=== PATIENT | female | born 1955 | race Caucasian/White ===

== ENCOUNTER 2020-04-12 14:47 | Inpatient (IN) ==
[2020-04-12] MEDS ORDERED: *HR* OxyCODONE Immed Rel 5 MG TABLET PO STA (22:24)
[2020-04-12] MEDS ORDERED: Cyanocobalamin (B-12) 1,000 MCG/ML VIAL IM SCH (22:30)
[2020-04-13] MEDS ORDERED: hydrOXYzine pamoate 25 MG CAPSULE PO PRN (00:51)
[2020-04-13] MEDS: hydrOXYzine pamoate 25 MG CAPSULE PO PRN ×2 (01:22→22:26)
[2020-04-13] MEDS: Famotidine 20 MG TABLET PO SCH ×3 (01:22→20:25)
[2020-04-13] MEDS: Simethicone 80 MG TAB.CHEW PO SCH ×3 (01:22→20:30)
[2020-04-13] MEDS: Pregabalin 75 MG CAPSULE PO SCH ×3 (01:23→20:24)
[2020-04-13] MEDS: Divalproex (24 HR) 250 MG TABLET PO SCH ×2 (01:23→17:30)
[2020-04-13] MEDS: Sennosides 8.6 MG TABLET PO SCH ×2 (01:24→20:25)
[2020-04-13 05:51] LABS: Hemoglobin 8.9 g/dL (11.5-15.4); Mean Corpuscular HGB Conc 31.8 g/dL (31.6-35.5); Mean Corpuscular Hemoglobin 28.5 pg (28.0-33.3); Mean Corpuscular Volume 89.7 fL (83.0-100.0); Mean Platelet Volume 11.2 fL (9.4-12.4); Platelet Count 274 K/mcL (140-400); Red Blood Count 3.12 M/mcL (3.82-4.97); Red Cell Distribution Width 16.2 % (11.5-14.5); White Blood Count 8.2 K/mcL (4.3-11.1)
[2020-04-13 06:10] LABS: BUN/Creatinine Ratio 12 (6-26); Blood Urea Nitrogen 10 mg/dL (8-23); Calcium 8.2 mg/dL (8.6-10.3); Carbon Dioxide 31 mEq/L (23-29); Chloride 101 mEq/L (98-107); Glucose 111 mg/dL (70-105); Osmolality,Calculated 284 (280-300); Potassium 3.8 mEq/L (3.5-5.1); Sodium 137 mEq/L (136-145); eGFR For African Americans > 60 (> 60); eGFR For Non-African Americans > 60 (> 60)
[2020-04-13] MEDS: *HR* OxyCODONE Immed Rel 5 MG TABLET PO PRN ×4 (06:11→20:23)
[2020-04-13] MEDS: Ondansetron ODT 4 MG TAB.RAPDIS PO SCH ×3 (06:12→16:14)
[2020-04-13] MEDS: (Iron Polysaccharide Complex [Pro Fe] 180 MG) PO SCH (09:17)
[2020-04-13] MEDS: (Cyclosporine [Restasis] 1 EACH) OP SCH ×2 (09:17→22:21)
[2020-04-13] MEDS: Thiamine (B-1) 100 MG TABLET PO SCH (09:17)
[2020-04-13] MEDS: LOTEPREDNOL ETABONATE OP SCH ×2 (09:17→22:21)
[2020-04-13] MEDS: Cholecalciferol (D-3) 1,000 UNIT (25MCG) TABLET PO SCH (09:17)
[2020-04-13] MEDS: Metoprolol XL (24 HR) Succ 25 MG TAB.ER.24H PO SCH (09:17)
[2020-04-13] MEDS: (Naloxegol Oxalate [Movantik] 25 MG) PO SCH (09:18)
[2020-04-13] MEDS ORDERED: *HR* OxyCODONE Immed Rel 5 MG TABLET PO PRN (12:32)
[2020-04-13] MEDS ORDERED: tiZANidine 4 MG TABLET PO PRN (12:33)
[2020-04-13] MEDS ORDERED: Aspirin Enteric Coated 81 MG Tablet PO SCH (12:45)
[2020-04-13] MEDS: *HR* Enoxaparin 40 MG/0.4 ML SYRINGE SQ SCH (16:14)
[2020-04-13] MEDS: Aspirin Enteric Coated 81 MG Tablet PO SCH (16:14)
[2020-04-13] MEDS: Melatonin 3 MG TABLET PO PRN (22:26)
[2020-04-14] MEDS: *HR* OxyCODONE Immed Rel 5 MG TABLET PO PRN ×5 (04:18→20:59)
[2020-04-14] MEDS: *HR* Enoxaparin 40 MG/0.4 ML SYRINGE SQ SCH (04:18)
[2020-04-14] MEDS: Pregabalin 75 MG CAPSULE PO SCH ×2 (08:21→19:50)
[2020-04-14] MEDS: Thiamine (B-1) 100 MG TABLET PO SCH (08:22)
[2020-04-14] MEDS: Ondansetron ODT 4 MG TAB.RAPDIS PO SCH ×3 (08:23→16:31)
[2020-04-14] MEDS: Famotidine 20 MG TABLET PO SCH ×2 (08:23→19:50)
[2020-04-14] MEDS: Aspirin Enteric Coated 81 MG Tablet PO SCH (08:24)
[2020-04-14] MEDS: Simethicone 80 MG TAB.CHEW PO SCH ×2 (08:24→19:52)
[2020-04-14] MEDS: Cholecalciferol (D-3) 1,000 UNIT (25MCG) TABLET PO SCH (08:24)
[2020-04-14] MEDS: Metoprolol XL (24 HR) Succ 25 MG TAB.ER.24H PO SCH (08:24)
[2020-04-14] MEDS ORDERED: Cyanocobalamin (B-12) 1,000 MCG/ML VIAL IM SCH (09:00)
[2020-04-14] MEDS: (Naloxegol Oxalate [Movantik] 25 MG) PO SCH (12:22)
[2020-04-14] MEDS: LOTEPREDNOL ETABONATE OP SCH ×2 (12:22→19:53)
[2020-04-14] MEDS: (Iron Polysaccharide Complex [Pro Fe] 180 MG) PO SCH (12:23)
[2020-04-14] MEDS: (Cyclosporine [Restasis] 1 EACH) OP SCH ×2 (12:23→19:52)
[2020-04-14] MEDS: Divalproex (24 HR) 250 MG TABLET PO SCH (17:00)
[2020-04-14] MEDS: Sennosides 8.6 MG TABLET PO SCH (19:52)
[2020-04-14] MEDS: hydrOXYzine pamoate 25 MG CAPSULE PO PRN (22:07)
[2020-04-14] MEDS: Melatonin 3 MG TABLET PO PRN (22:07)
[2020-04-15] MEDS: *HR* OxyCODONE Immed Rel 5 MG TABLET PO PRN ×5 (04:33→22:08)
[2020-04-15] MEDS: *HR* Enoxaparin 40 MG/0.4 ML SYRINGE SQ SCH (04:34)
[2020-04-15 05:22] LABS: Basophils # 0.1 K/mcL (0.0-0.2); Eosinophils # 0.4 K/mcL (0.0-0.6); Eosinophils % 3.9 %; Hematocrit 27.5 % (35.3-44.9); Hemoglobin 8.5 g/dL (11.5-15.4); Immature Granulocytes % 0.9 % (0-4); Lymphocytes # 3.3 K/mcL (0.6-4.6); Lymphocytes % 35.5 %; Mean Corpuscular HGB Conc 30.9 g/dL (31.6-35.5); Mean Corpuscular Hemoglobin 28.2 pg (28.0-33.3); Mean Corpuscular Volume 91.4 fL (83.0-100.0); Mean Platelet Volume 10.8 fL (9.4-12.4); Monocytes # 0.8 K/mcL (0.0-1.3); Monocytes % 8.1 %; Neutrophils # 4.7 K/mcL (1.6-8.9); Nucleated Red Blood Cells 0.4 /100 WBC (0); Platelet Count 376 K/mcL (140-400); Red Blood Count 3.01 M/mcL (3.82-4.97); Red Cell Distribution Width 16.7 % (11.5-14.5); Segmented Neutrophils % 50.6 %; White Blood Count 9.3 K/mcL (4.3-11.1)
[2020-04-15 05:43] LABS: BUN/Creatinine Ratio 15 (6-26); Blood Urea Nitrogen 13 mg/dL (8-23); Calcium 8.3 mg/dL (8.6-10.3); Carbon Dioxide 30 mEq/L (23-29); Chloride 100 mEq/L (98-107); Glucose 127 mg/dL (70-105); Osmolality,Calculated 284 (280-300); Potassium 4.3 mEq/L (3.5-5.1); Sodium 136 mEq/L (136-145); eGFR For African Americans > 60 (> 60); eGFR For Non-African Americans > 60 (> 60)
[2020-04-15] MEDS: Ondansetron ODT 4 MG TAB.RAPDIS PO SCH ×3 (08:39→16:52)
[2020-04-15] MEDS: Thiamine (B-1) 100 MG TABLET PO SCH (08:49)
[2020-04-15] MEDS: Famotidine 20 MG TABLET PO SCH ×2 (08:49→21:52)
[2020-04-15] MEDS: Cholecalciferol (D-3) 1,000 UNIT (25MCG) TABLET PO SCH (08:49)
[2020-04-15] MEDS: Simethicone 80 MG TAB.CHEW PO SCH ×2 (08:49→21:52)
[2020-04-15] MEDS: Pregabalin 75 MG CAPSULE PO SCH ×2 (08:57→21:52)
[2020-04-15] MEDS: (Naloxegol Oxalate [Movantik] 25 MG) PO SCH (09:01)
[2020-04-15] MEDS: Metoprolol XL (24 HR) Succ 25 MG TAB.ER.24H PO SCH (09:01)
[2020-04-15] MEDS: Aspirin Enteric Coated 81 MG Tablet PO SCH (09:01)
[2020-04-15] MEDS: (Iron Polysaccharide Complex [Pro Fe] 180 MG) PO SCH (09:02)
[2020-04-15] MEDS: LOTEPREDNOL ETABONATE OP SCH ×2 (09:02→21:58)
[2020-04-15] MEDS: (Cyclosporine [Restasis] 1 EACH) OP SCH ×2 (09:03→21:57)
[2020-04-15] MEDS: Acetaminophen 325 MG TABLET PO PRN (12:55)
[2020-04-15] MEDS: tiZANidine 4 MG TABLET PO SCH ×2 (14:54→14:55)
[2020-04-15] MEDS ORDERED: tiZANidine 4 MG TABLET PO PRN (14:57)
[2020-04-15] MEDS: Divalproex (24 HR) 250 MG TABLET PO SCH (16:52)
[2020-04-15] MEDS: Melatonin 3 MG TABLET PO SCH (21:52)
[2020-04-15] MEDS: Sennosides 8.6 MG TABLET PO SCH (21:53)
[2020-04-15] MEDS: hydrOXYzine pamoate 25 MG CAPSULE PO SCH (21:53)
[2020-04-16] MEDS: *HR* OxyCODONE Immed Rel 5 MG TABLET PO PRN ×5 (02:09→20:47)
[2020-04-16 05:28] LABS: Basophils # 0.1 K/mcL (0.0-0.2); Basophils % 0.8 %; Eosinophils # 0.5 K/mcL (0.0-0.6); Eosinophils % 5.1 %; Hemoglobin 8.2 g/dL (11.5-15.4); Immature Granulocytes % 1.1 % (0-4); Lymphocytes % 32.7 %; Mean Corpuscular HGB Conc 31.5 g/dL (31.6-35.5); Mean Corpuscular Hemoglobin 28.5 pg (28.0-33.3); Mean Corpuscular Volume 90.3 fL (83.0-100.0); Mean Platelet Volume 10.9 fL (9.4-12.4); Monocytes # 0.9 K/mcL (0.0-1.3); Monocytes % 9.5 %; Neutrophils # 4.7 K/mcL (1.6-8.9); Nucleated Red Blood Cells 0.9 /100 WBC (0); Platelet Count 379 K/mcL (140-400); Red Blood Count 2.88 M/mcL (3.82-4.97); Red Cell Distribution Width 16.9 % (11.5-14.5); Segmented Neutrophils % 50.8 %; White Blood Count 9.3 K/mcL (4.3-11.1)
[2020-04-16 05:44] LABS: Albumin 3.1 g/dL (3.5-5.7); Albumin/Globulin Ratio 1.1 (1.1-2.2); Bilirubin,Total 0.4 mg/dL (0.3-1.0); Calcium 8.1 mg/dL (8.6-10.3); Globulin 2.7 g/dL (2.4-3.5); Potassium 4.3 mEq/L (3.5-5.1); Total Protein 5.8 g/dL (6.4-8.9)
[2020-04-16] MEDS: *HR* Enoxaparin 40 MG/0.4 ML SYRINGE SQ SCH (06:39)
[2020-04-16] MEDS: Famotidine 20 MG TABLET PO SCH ×2 (09:56→20:49)
[2020-04-16] MEDS: Cholecalciferol (D-3) 1,000 UNIT (25MCG) TABLET PO SCH (09:56)
[2020-04-16] MEDS: Thiamine (B-1) 100 MG TABLET PO SCH (09:56)
[2020-04-16] MEDS: Simethicone 80 MG TAB.CHEW PO SCH ×2 (09:57→20:46)
[2020-04-16] MEDS: Ondansetron ODT 4 MG TAB.RAPDIS PO SCH ×3 (09:57→17:08)
[2020-04-16] MEDS: Aspirin Enteric Coated 81 MG Tablet PO SCH (09:57)
[2020-04-16] MEDS: Pregabalin 75 MG CAPSULE PO SCH ×2 (09:58→20:46)
[2020-04-16] MEDS: Metoprolol XL (24 HR) Succ 25 MG TAB.ER.24H PO SCH (09:58)
[2020-04-16] MEDS: LOTEPREDNOL ETABONATE OP SCH ×2 (10:00→20:54)
[2020-04-16] MEDS: (Cyclosporine [Restasis] 1 EACH) OP SCH ×2 (10:00→20:54)
[2020-04-16] MEDS: (Naloxegol Oxalate [Movantik] 25 MG) PO SCH (10:01)
[2020-04-16] MEDS: (Iron Polysaccharide Complex [Pro Fe] 180 MG) PO SCH (10:01)
[2020-04-16] MEDS: Divalproex (24 HR) 250 MG TABLET PO SCH (17:08)
[2020-04-16] MEDS: hydrOXYzine pamoate 25 MG CAPSULE PO SCH (20:48)
[2020-04-16] MEDS: Melatonin 3 MG TABLET PO SCH (20:49)
[2020-04-16] MEDS: Sennosides 8.6 MG TABLET PO SCH (20:50)
[2020-04-17] MEDS: Ondansetron ODT 4 MG TAB.RAPDIS PO SCH ×3 (06:46→17:38)
[2020-04-17] MEDS: *HR* Enoxaparin 40 MG/0.4 ML SYRINGE SQ SCH (06:46)
[2020-04-17] MEDS: *HR* OxyCODONE Immed Rel 5 MG TABLET PO PRN (06:47)
[2020-04-17] MEDS: Aspirin Enteric Coated 81 MG Tablet PO SCH (10:07)
[2020-04-17] MEDS: Pregabalin 75 MG CAPSULE PO SCH ×2 (10:07→20:37)
[2020-04-17] MEDS: Cholecalciferol (D-3) 1,000 UNIT (25MCG) TABLET PO SCH (10:07)
[2020-04-17] MEDS: Famotidine 20 MG TABLET PO SCH ×2 (10:07→20:37)
[2020-04-17] MEDS: Metoprolol XL (24 HR) Succ 25 MG TAB.ER.24H PO SCH (10:08)
[2020-04-17] MEDS: (Iron Polysaccharide Complex [Pro Fe] 180 MG) PO SCH (10:08)
[2020-04-17] MEDS: Thiamine (B-1) 100 MG TABLET PO SCH (10:08)
[2020-04-17] MEDS: Simethicone 80 MG TAB.CHEW PO SCH ×2 (10:08→20:37)
[2020-04-17] MEDS: (Naloxegol Oxalate [Movantik] 25 MG) PO SCH (10:08)
[2020-04-17] MEDS ORDERED: tiZANidine 4 MG TABLET PO PRN (10:10)
[2020-04-17] MEDS: (Cyclosporine [Restasis] 1 EACH) OP SCH ×2 (11:03→20:40)
[2020-04-17] MEDS: LOTEPREDNOL ETABONATE OP SCH ×2 (11:03→20:40)
[2020-04-17] MEDS ORDERED: *HR* OxyCODONE/APAP 5/325 TABLET PO PRN (11:56)
[2020-04-17] MEDS: Acetaminophen 325 MG TABLET PO PRN (12:03)
[2020-04-17] MEDS: *HR* OxyCODONE/APAP 7.5/325 TABLET PO PRN ×2 (13:58→20:38)
[2020-04-17] MEDS: Divalproex (24 HR) 250 MG TABLET PO SCH (17:37)
[2020-04-17] MEDS: Melatonin 3 MG TABLET PO SCH (20:37)
[2020-04-17] MEDS: Sennosides 8.6 MG TABLET PO SCH (20:38)
[2020-04-17] MEDS: hydrOXYzine pamoate 25 MG CAPSULE PO SCH (20:38)
[2020-04-18] MEDS: Ondansetron ODT 4 MG TAB.RAPDIS PO SCH ×3 (06:33→16:56)
[2020-04-18] MEDS: *HR* Enoxaparin 40 MG/0.4 ML SYRINGE SQ SCH (06:33)
[2020-04-18] MEDS: *HR* OxyCODONE/APAP 7.5/325 TABLET PO PRN ×3 (06:34→19:03)
[2020-04-18] MEDS: (Cyclosporine [Restasis] 1 EACH) OP SCH ×2 (08:42→20:38)
[2020-04-18] MEDS: (Naloxegol Oxalate [Movantik] 25 MG) PO SCH (08:43)
[2020-04-18] MEDS: LOTEPREDNOL ETABONATE OP SCH ×2 (08:43→20:38)
[2020-04-18] MEDS: Cholecalciferol (D-3) 1,000 UNIT (25MCG) TABLET PO SCH (08:44)
[2020-04-18] MEDS: Simethicone 80 MG TAB.CHEW PO SCH ×2 (08:44→20:36)
[2020-04-18] MEDS: Famotidine 20 MG TABLET PO SCH ×2 (08:44→20:36)
[2020-04-18] MEDS: Aspirin Enteric Coated 81 MG Tablet PO SCH (08:44)
[2020-04-18] MEDS: (Iron Polysaccharide Complex [Pro Fe] 180 MG) PO SCH (08:44)
[2020-04-18] MEDS: Thiamine (B-1) 100 MG TABLET PO SCH (08:44)
[2020-04-18] MEDS: Metoprolol XL (24 HR) Succ 25 MG TAB.ER.24H PO SCH (11:29)
[2020-04-18] MEDS: Pregabalin 75 MG CAPSULE PO SCH ×3 (11:35→20:37)
[2020-04-18] MEDS ORDERED: Pregabalin 50 MG CAPSULE PO SCH ×2 (12:30→15:00)
[2020-04-18] MEDS: Divalproex (24 HR) 250 MG TABLET PO SCH (16:55)
[2020-04-18 19:57] LABS: Estimated Average Glucose 126 mg/dl
[2020-04-18] MEDS: hydrOXYzine pamoate 25 MG CAPSULE PO SCH (20:36)
[2020-04-18] MEDS: Sennosides 8.6 MG TABLET PO SCH (20:37)
[2020-04-18] MEDS: Melatonin 3 MG TABLET PO SCH (20:37)
[2020-04-18] MEDS: Vortioxetine Hydrobromide [Trintellix] 20 MG PO SCH (20:53)
[2020-04-18] MEDS ORDERED: Pregabalin 75 MG CAPSULE PO SCH (21:00)
[2020-04-19] MEDS: *HR* Enoxaparin 40 MG/0.4 ML SYRINGE SQ SCH (04:49)
[2020-04-19 05:04] LABS: Hematocrit 25.7 % (35.3-44.9); Hemoglobin 7.8 g/dL (11.5-15.4); Mean Corpuscular HGB Conc 30.4 g/dL (31.6-35.5); Mean Corpuscular Hemoglobin 27.8 pg (28.0-33.3); Mean Corpuscular Volume 91.5 fL (83.0-100.0); Mean Platelet Volume 10.7 fL (9.4-12.4); Platelet Count 378 K/mcL (140-400); Red Blood Count 2.81 M/mcL (3.82-4.97); Red Cell Distribution Width 17.5 % (11.5-14.5); White Blood Count 7.6 K/mcL (4.3-11.1)
[2020-04-19 05:18] LABS: Alanine Aminotransferase 12 Units/L (7-52); Albumin 2.8 g/dL (3.5-5.7); Albumin/Globulin Ratio 1.2 (1.1-2.2); Alkaline Phosphatase 98 Units/L (34-104); Aspartate Amino Transferase 10 Units/L (13-39); BUN/Creatinine Ratio 15 (6-26); Bilirubin,Total 0.7 mg/dL (0.3-1.0); Blood Urea Nitrogen 13 mg/dL (8-23); Carbon Dioxide 30 mEq/L (23-29); Chloride 105 mEq/L (98-107); Globulin 2.4 g/dL (2.4-3.5); Glucose 94 mg/dL (70-105); Magnesium 1.9 mg/dL (1.6-2.6); Osmolality,Calculated 292 (280-300); Potassium 3.8 mEq/L (3.5-5.1); Sodium 141 mEq/L (136-145); Total Protein 5.2 g/dL (6.4-8.9); eGFR For African Americans > 60 (> 60); eGFR For Non-African Americans > 60 (> 60)
[2020-04-19 05:54] LABS: Thyroid Stimulating Hormone 2.432 mcIU/mL (0.340-5.600)
[2020-04-19] MEDS: *HR* OxyCODONE/APAP 7.5/325 TABLET PO PRN ×2 (06:43→12:50)
[2020-04-19] MEDS: Ondansetron ODT 4 MG TAB.RAPDIS PO SCH ×3 (06:44→16:58)
[2020-04-19 07:17] VITALS: BP 94/62
[2020-04-19] MEDS: Aspirin Enteric Coated 81 MG Tablet PO SCH (08:54)
[2020-04-19] MEDS: Famotidine 20 MG TABLET PO SCH (08:54)
[2020-04-19] MEDS: Cholecalciferol (D-3) 1,000 UNIT (25MCG) TABLET PO SCH (08:54)
[2020-04-19] MEDS: Pregabalin 75 MG CAPSULE PO SCH (08:55)
[2020-04-19] MEDS: Thiamine (B-1) 100 MG TABLET PO SCH (08:55)
[2020-04-19] MEDS: Simethicone 80 MG TAB.CHEW PO SCH (08:55)
[2020-04-19] MEDS: Metoprolol XL (24 HR) Succ 25 MG TAB.ER.24H PO SCH (08:55)
[2020-04-19] MEDS: LOTEPREDNOL ETABONATE OP SCH (08:56)
[2020-04-19] MEDS: (Cyclosporine [Restasis] 1 EACH) OP SCH (08:57)
[2020-04-19] MEDS: (Iron Polysaccharide Complex [Pro Fe] 180 MG) PO SCH (08:57)
[2020-04-19] MEDS: Vortioxetine Hydrobromide [Trintellix] 20 MG PO SCH (08:58)
[2020-04-19] MEDS: (Naloxegol Oxalate [Movantik] 25 MG) PO SCH (09:00)
[2020-04-19] MEDS: Divalproex (24 HR) 250 MG TABLET PO SCH (17:14)
== END 2020-04-19 17:35 | disposition home or self-care (01) | DRG 560 ==
LOC: INPGRE 20:32
PROVIDERS: ADMIT Family Medicine; ATTEND Family Medicine